=== PATIENT | female | born 1940 | race Caucasian/White ===

== ENCOUNTER 2025-06-15 19:07 | Emergency (ER) | payer MEDICARE, BC, SELFPAY ==
--- NOTE | 2025-06-15 19:16 | ED_ITS ---
HPI - Extremity Injury (Lower) General Chief Complaint: Extremity Injury, Lower Stated Complaint: R LEG INJURY Time Seen by Provider: 06/15/25 19:16 Source: patient and RN notes reviewed Mode of arrival: ambulatory Limitations: no limitations History of Present Illness HPI Narrative: 84-year-old female presents to the [facility] with complaints of redness, swelling, drainage from a skin tear to the right posterior lower leg. Robert is going HPI due to patient's history of dementia. states that she was walking downstairs, rub the back of her leg against edge of the stair and had a skin tear, he cleaned it, trimmed away some extra skin. Since then has had some thick drainage her as well as pain and swelling to the lower leg, ankle, foot. Has been reports that he has been cleaning it and keeping a dressing on it. Denies history of diabetes This occurred 4 days ago Onset (ago): day(s) (4) Treatments prior to arrival: bandage Related Data Allergies Allergy/AdvReac Type Severity Reaction Status Date / Time No Known Allergies Allergy Verified 06/15/25 19:24 Review of Systems 2 Review of Systems: All systems reviewed & are unremarkable except as noted in HPI and below Constitutional: Constitutional: Reports no additional constitutional complaints Musculoskeletal: Musculoskeletal: Reports as per HPI Integumentary/Breasts: Skin/Breast: Reports as per HPI and Reports wounds PMFSH Past Medical History Medical History Dementia Comments At the time of my signature, I reviewed and agree with the nursing past medical, surgical, social, and family history. There is no relevant family history pertinent to the patient complaint. Exam 2 Const: General: cooperative, comfortable, no acute distress, well developed, alert and tired appearing Orientation/consciousness: oriented to person L imitations: altered mental status (Dementia) HENMT: Head: normal to inspection Eyes: General: appearance normal, both eyes and all related structures A lignment and Position: alignment normal Neck: Neck: normal visual inspection, full ROM, no lymphadenopathy and no meningeal signs Chest: Chest palpation & inspection: normal inspection of the chest Resp: Effort & Inspection: normal respiratory effort and able to speak in complete sentences Cardio: Rate: regular rate Skin: Full body images: 1. 2 x 3 cm approximate purulent drainage, skin tear open wound. Be low that to the tip of the toe +2 edema, erythema, warm to touch Neuro: General: gait normal and moves all extremities Gait exam (Neuro): N ormal gait present Extrem: General: normal to inspection, full ROM, capillary refill normal and normal gait Other: +1 pulse right dorsal foot Movement of toes is noted Psych: Appearance: grossly normal and well kempt Affect: normal affect A ttitude: cooperative Course Course Level of Care: Express Care Visit Vital Signs Vital signs: Vital Signs Temperature 97.4 F L 06/15/25 19:22 Pulse Rate 89 06/15/25 19:22 Respiratory Rate 18 06/15/25 19:22 Blood Pressure 136/80 06/15/25 19:22 Pulse Oximetry 94 06/15/25 19:22 Temperature 97.4 F L 06/15/25 19:22 Pulse Rate 89 06/15/25 19:22 Respiratory Rate 18 06/15/25 19:22 Blood Pressure 136/80 06/15/25 19:22 Pulse Oximetry 94 06/15/25 19:22 Reviewed Transfer Transfered to: [facility]: Other (POV) Transfer rationale: Patient with a purulent drainage wound, significant +2 edema to the lower leg with circumferential cellulitis, sending for higher level of care Accepting physician: Spoke with Dr Gema Rajput MDM - Extremity Injury (Lower) MDM Narrative Medical decision making narrative: Patient sitting in exam room. HPI receive from . Significant erythema, swelling to the right lower foot, open wound with purulent drainage sending for higher level care rule out circumferential cellulitis. Transfer instructions reviewed with patient and go directly to the ER. Also reinforced by RN. All questions have been answered, and the patient deny any further questions. Some parts of this dictation were generated by voice recognition software and may contain typographical and/or grammatical inaccuracies. Differential Diagnosis Differential diagnosis: Likely ankle sprain and strain and other (Cellulitis, wound) Critical Care Time Critical Care Time Critical Care Time: No Discharge Plan Discharge Clinical Impression: Open wound, Cellulitis of leg, right Patient Disposition: Acute Care Hospital Condition: Stable Patient Language: Gambian Follow-up/Referrals: Bir,Marquita [Other]
[2025-06-15 19:22] VITALS: BP 136/80; PULSE 89; RESP 18; TEMP 36.3; O2SAT 94
== END 2025-06-15 19:30 | disposition short-term general hospital (02) ==
PROVIDERS: Emergency Provider Nurse Practitioner
DX: S81.811A Laceration without foreign body, right lower leg, initial encounter (principal); L03.115 Cellulitis of right lower limb; W22.09XA Striking against other stationary object, initial encounter; F03.90 Unspecified dementia, unspecified severity, without behavioral disturbance, psychotic disturbance, mood disturbance, and anxiety
CPT/HCPCS: 99202; G0463

== ENCOUNTER 2025-06-15 19:51 | Emergency (ER) | payer MEDICARE, BC, SELFPAY ==
--- OUTSIDE RECORDS SUMMARY | 2025-06-15 19:53 | XMS_ITS | Clinical Summary ---
Author Organization [facility] Address [address] [place] [place] [address] Phone Care Team Providers Care Change Management Facilitator Name Role Phone Barbara Gomez MD Primary Care Provider [phone] Medications levoFLOXacin (LEVAQUIN) 750 mg tabletIndication s:Acute sinusitis TAKE ONE TABLET DAILY FOR 14 DAYS. 14 tablet 0 3 Active mometasone-formo terol (DULERA) 100-5 mcg/actuation inhaler INHALE 2 PUFFS, BY MOUTH, TWICE DAILY. RINSE MOUTH AFTER USE. 1 GM 6 3 Active albuterol HFA (PROAIR HFA) 90 mcg/actuation inhaler inhale 1 puff every 4 hours if needed for wheezing 1 GM 5 3 Active azelastine-fluti casone (DYMISTA) 137-50 mcg/spray spray,non-aeroso lIndications:Chr onic sinusitis INSTILL 1 SPRAY DAILY 1 GM 5 3 Active azelastine (ASTEPRO) 0.15 % (205.5 mcg) spray,non-aeroso lIndications:Chr onic sinusitis 1-2 sprays each nostril 6 3 Active fluticasone (FLONASE) 50 mcg/actuation nasal sprayIndications :Chronic sinusitis instill 1 spray into each nostril twice a day 4 3 Active montelukast (SINGULAIR) 10 mg tabletIndication s:Chronic obstructive pulmonary disease (CMS/HCC),Chroni c sinusitis TAKE 1 TABLET BY MOUTH AT BEDTIME 30 tablet 9 3 Active Active Problems Problem Noted Date Diagnosed Date Shortness of breath 09/01/2013 Chronic obstructive pulmonary disease 01/18/2013 Chronic sinusitis 12/28/2012 Cough 12/28/2012 Abnormal chest x-ray with multiple lung nodules 12/28/2012 Resolved Problems Problem Noted Date Diagnosed Date Resolved Date Acute sinusitis 02/16/2013 11/26/2019 Family History Medical History Relation Name Comments Colon cancer FamHx Colon Cancer Relation Name Status Comments FamHx Social History Tobacco Use Types Packs/Day Years Used Date Smoking Tobacco: Former Comments Unknown Sex and Gender Information Value Date Recorded Sex Assigned at Not on file Legal Sex Female 10:22 PM PST Gender Identity Not on file Sexual Orientation Not on file Plan of Treatment Health Maintenance Due Date Last Done Comments DXA Scan (Bone Density Measurement) 1942 Tuberculosis Screening 1942 Hepatitis B Screening 1958 Adult Tdap/Td Vaccines (1 - Tdap) 1961 Pneumococcal 50+ (1 of 1 - PCV) 1992 Shingrix (Zoster) Vaccine (1 of 2) 1992 RSV (1 - 1-dose 75+ series) 2017 COVID-19 Vaccine (1 - season) 2025 Influenza 65+ (#1) 2025 Care Teams Change Management Facilitator Relationship Specialty Start Date End Date Barbara Gomez MD [address] [place] [address] PCP - General 10/29/16
--- OUTSIDE RECORDS SUMMARY | 2025-06-15 19:53 | XMS_ITS | Encounter Summary ---
Author Organization [facility] Address [address] [place] [address] Phone Care Team Providers Care Farmworker Rice Name Role Phone Barbara Gomez MD Primary Care Provider Encounter Details Date Type Department Care Team (Late st Contact Info) Description 03/14/2014 Orders Only [facility] Pulmonary Chest Medicine [address] [place] [phone] Pinky Andrew MD, MPH [address] [place] [address] Acute sinusitis; Chronic sinusitis Social History Tobacco Use Types Packs/Day Years Used Date Smoking Tobacco: Former Comments Unknown Sex and Gender Information Value Date Recorded Sex Assigned at Not on file Legal Sex Female 10:22 PM PST Gender Identity Not on file Sexual Orientation Not on file documented as of this encounter Plan of Treatment Not on file documented as of this encounter Visit Diagnoses Diagnosis Acute sinusitis Acute sinusitis, unspecified Chronic sinusitis Unspecified sinusitis (chronic) documented in this encounter Care Teams Farmworker Rice Relationship Specialty Start Date End Date Barbara Gomez MD [address] [place], [place] [phone] PCP - General 10/29/16 documented as of this encounter
--- OUTSIDE RECORDS SUMMARY | 2025-06-15 19:53 | XMS_ITS | Encounter Summary ---
Author Organization [email or web address] Address [address] [place] [address] Care Team Providers Care Teletype Operator Name Role Phone Marquita Pollock MD Primary Care Provider [phone] Encounter Details Date Type Department Care Team (Latest Contact Info) Description 06/10/2021 [facility] [address] [address] [place] [address] [place] [address] [facility] [employer] [facility] [address] [place] [address] Senile osteoporosis (Primary Dx) Social History Tobacco Use Types Packs/Day Years Used Date Smoking Tobacco: Former Smokeless Tobacco: Never Alcohol Use Standard Drinks/Week Comments No 0 (1 standard drink = 0.6 oz pur e alcohol) Comments No Sex and Gender Information Value Date Recorded Sex Assigned at Not on file Legal Sex Female 1:38 PM PDT Gender Identity Not on file Sexual Orientation Not on file documented as of this encounter Plan of Treatment Upcoming Encounters Date Type Department Care Team (Late st Contact Info) Description 06/25/2025 9:00 AM PDT Procedure visit [facility] [address] [facility] [address] [place] [address] [place] [address] [facility] [employer] [facility] [address] [place], [place] [phone] 09/27/2025 9:00 AM PST Clinical Support [facility] [address] [employer] [facility] [address] [place] [phone] documented as of this encounter Results * BI Dexa Bone Density (07/24/2021 1:42 PM PDT) Anatomical Region Laterality Modality N/A Digital Radiogra phy Narrative 07/24/2021 1:47 PM PDT This study has been reviewed and the results sent to the ordering provider. Please be advised the study result will be available for viewing within 48 to 72 hours under the Media Tab. For immediate viewing please use Chart Review and launch the Image Link. us Marquita Pollock MD IMG DXA PROCEDURES Final Result documented in this encounter Visit Diagnoses Diagnosis Senile osteoporosis- Primary Senile osteoporosis documented in this encounter Additional Health Concerns Infection Onset Date Last Indicated Resolved Time R/O Coronavirus 12/25/2022 12/25/2022 12/25/2022 4 :26 AM PDT R/O Coronavirus 09/12/2023 09/12/2023 09/12/2023 2 :54 PM PST R/O Coronavirus 09/12/2023 09/12/2023 09/12/2023 4 :49 PM PST COVID-19 09/12/2023 09/12/2023 10/12/2023 10:4 8 PM PST Assessment Noted Time A fall risk assessment has been complete d for the patient 01/07/2021 8:07 AM PDT documented as of this encounter Care Teams Teletype Operator Relationship Specialty [place] [address] [facility] [address] [place] [address] PCP - General Family Medicine 12/19/19 documented as of this encounter
--- OUTSIDE RECORDS SUMMARY | 2025-06-15 19:53 | XMS_ITS | Encounter Summary ---
Author Organization [facility] Address [address] [place] [address] Care Team Providers Care Business Line Controller Name Role Phone Marquita Pollock MD Primary Care Provider [phone] Encounter Details Date Type Department Care Team (Late Contact Info) Description 12/18/[address] [facility] [address] [address] [place] [address] [place] [address] [facility] [address] [place] [address] Left breast lump (Primary Dx); Screening mammogram, encounter for; Breast tenderness Social History Tobacco Use Types Packs/Day Years [...] Description 06/25/2025 9:00 AM PDT Procedure visit [facility] [address] [facility] [address] [place] [phone] [place] [address] [facility] [address] [place], [place] [phone] 09/27/2025 9:00 AM PST Clinical Support [facility] [address] [facility] [address] [facility] [place] [phone] documented as of this encounter Results * BI Diagnostic Mammogram Left W/CAD (12/20/2019 10:50 AM PDT) Anatomical Region Laterality Modality Breast Left Mammography 12/20/2019 Impressions 12/20/2019 10:50 AM PDT BI-RADS Category 2 (Benign Finding(s)) Free silicone in the left breast 9:00 axis, correlating to the palpable concern and indicating extracapsular rupture. Surgical consultation and clinical follow-up are recommended regarding the clinical complaint. MRI can be considered for further evaluation. Results discussed with the patient. Breast Density: Heterogeneously Dense (DENSE BREASTS) The results and recommendations were discussed with the patient. Patient was entered into a reminder system for annual screening mammogram or follow up mammogram. Electronically Signed by: LESLI WELCH M.D. Narrative 12/20/2019 10:50 AM PDT PROCEDURE: Left Breast Digital Diagnostic Mammogram with CAD, Left Breast Limited Ultrasound HISTORY: Patient is 79 years old and is seen for palpable abnormality or thickening noted by patient in the left breast. The patient has a history of right needle biopsy in 1994, bilateral augmentation in 1993 and bilateral augmentation in 1973. The patient has a history of bladder cancer at age 60. The patient has no family history of breast cancer. TECHNIQUE: The following mammographic views were obtained: left 2D craniocaudal, 2D craniocaudal spot compression, 2D craniocaudal implant displaced, 2D mediolateral oblique, 2D mediolateral oblique implant displaced and lateromedial spot compression. FILMS COMPARED: The present examination has been compared to prior imaging studies performed at [facility] on 08/19/2015, 08/20/2016, 09/21/2018 and 09/26/2019. MAMMOGRAM FINDINGS: Computer-aided detection was utilized by the radiologist in the interpretation of this examination. The breast is heterogeneously dense, which may obscure small masses. There is pre-pectoral silicone gel implants. There is an asymmetry in the left breast at 9 o'clock. This finding correlates with the palpable mass. No suspicious masses, suspicious calcifications, suspicious asymmetries or suspicious architectural distortions are seen. ULTRASOUND FINDINGS: Directed ultrasound was performed in the area of clinical concern. There is free silicone in the area of palpable concern 9:00 axis, 9 cm from the nipple, correlating to the palpable concern. No adenopathy. Procedure Note Lesli Welch MD - 12/21/2019 PROCEDURE: Left Breast Digital Diagnostic Mammogram with CAD, Left Breast LimitedUltrasound HISTORY: Patient is 79 years old and is seen for palpable abnormality or thickeningnoted by patient in the left breast. The patient has a history of right needlebiopsy in 1994, bilateral augmentation in 1993 and bilateral augmentation [id number]. The patient has a history of bladder cancer at age 60. The patient has nofamily history of breast cancer. TECHNIQUE: The following mammographic views were obtained: left 2D craniocaudal, 2D craniocaudal spot compression, 2D craniocaudal implant displaced, 2D mediolateral oblique, 2D mediolateral oblique implant displaced andlateromedial spot compression. FILMS COMPARED: The present examination has been compared to [facility] 08/19/2015,08/20/2016, 09/21/2018 and 09/26/2019. MAMMOGRAM FINDINGS: Computer-aided detection was utilized by the radiologist in theinterpretation of this examination. The breast is heterogeneously dense, which mayobscure small masses. There is pre-pectoral silicone gel implants. There is an asymmetry in theleft breast at 9 o'clock. This finding correlates with the palpable mass. No suspicious masses, suspicious calcifications, suspicious asymmetriesor suspicious architectural distortions are seen. ULTRASOUND FINDINGS: Directed ultrasound was performed in the area of clinical concern. There is free silicone in the area of palpable concern 9:00 axis, 9 cmfrom the nipple, correlating to the palpable concern. No adenopathy. IMPRESSION: BI-RADS Category 2 (Benign Finding(s)) Free silicone in the left breast 9:00 axis, correlating to the palpableconcern and indicating extracapsular rupture. Surgical consultation and clinical follow-up are recommended regardingthe clinical complaint. MRI can be considered for further evaluation.Results discussed with the patient. Breast Density: Heterogeneously Dense (DENSE BREASTS) The results and recommendations were discussed with the patient. Patientwas entered into a reminder system for annual screening mammogram or followup mammogram. Electronically Signed by: LESLI WELCH M.D. Marquita Pollock MD IMG BI PROCEDURES Final Result documented in this encounter Visit Diagnoses Diagnosis Left breast lump- Primary Screening mammogram, encounter for Breast tenderness Mastodynia Screening mammogram, encounter for Left breast lump Breast tenderness Mastodynia documented in this encounter Additional Health Concerns Infection Onset Date Last Indicated Resolved Time R/O Coronavirus 12/25/2022 12/25/2022 12/25/2022 4 :26 AM PDT R/O Coronavirus 09/12/2023 09/12/2023 09/12/2023 2 :54 PM PST R/O Coronavirus 09/12/2023 09/12/2023 09/12/2023 4 :49 PM PST COVID-19 09/12/2023 09/12/2023 10/12/2023 10:4 8 PM PST Assessment Noted Time A fall risk assessment has been complete d for the patient 11/20/2019 2:01 PM PST documented as of this encounter Care Teams Business Line Controller Relationship Specialty Start [place] [address] [address] PCP - General Family Medicine 12/19/19 documented as of this encounter
--- OUTSIDE RECORDS SUMMARY | 2025-06-15 19:53 | XMS_ITS | Encounter Summary ---
Author Organization [facility] Address [address] [place] [address] Care Team Providers Care Family Protection Specialist Name Role Phone Marquita Pollock MD Primary Care Provider [phone] Encounter Details Date Type Department Care Team (Late st Contact Info) Description 05/18/2024 [facility] [address] [place] [address] [place] [address] [facility] [address] [place] [address] DDD (degenerative disc disease), lumbar (Primary Dx) Social History Tobacco Use Types [...] Description 06/25/2025 9:00 AM PDT Procedure visit [facility] [address] [facility] [address] [place] [phone] [place] [address] [facility] [address] [place], [place] [phone] 09/27/2025 9:00 AM PST Clinical Support [facility] [address] [facility] [address] [place] [phone] documented as of this encounter Results * XR Spine Lumbar 2 Or 3 Views (05/19/2024 3:25 PM PDT) Anatomical Region Laterality Modality Spine, L-spine Computed Radiogr aphy 05/19/2024 3:37 PM PDT Impressions 05/19/2024 3:39 PM PDT Marked multilevel lumbar spondylosis. This report was generated using speech recognition software. Signed by: Raúl Melissa MD Narrative 05/19/2024 3:39 PM PDT LUMBAR SPINE HISTORY: DDD (degenerative disc disease), lumbar COMPARISON: None. FINDINGS: Lumbar vertebral body heights maintained. Mild levocurvature of the lumbar spine. Marked multilevel hypertrophic degenerative changes associated multilevel disc height loss. Vascular calcification. Procedure Note Raúl Melissa MD - 05/19/2024 LUMBAR SPINE HISTORY: DDD (degenerative disc disease), lumbar COMPARISON: None. FINDINGS: Lumbar vertebral body heights maintained. Mild levocurvature of thelumbar spine. Marked multilevel hypertrophic degenerative changes associated multileveldisc height loss. Vascular calcification. IMPRESSION: Marked multilevel lumbar spondylosis. This report was generated using speech recognition software. Signed by: Raúl Melissa MD Marquita Pollock MD IMG XR PROCEDURES Final Result documented in this encounter Visit Diagnoses Diagnosis DDD (degenerative disc disease), lumbar- Primary Degeneration of lumbar or lumbosacral intervertebral disc DDD (degenerative disc disease), lumbar Degeneration of lumbar or lumbosacral intervertebral disc documented in this encounter Additional Health Concerns Assessment Noted Time A fall risk assessment has been complete d for the patient 04/18/2024 7:52 AM PDT documented as of this encounter Care Teams Family Protection Specialist Relationship Specialty Start [place] [address] [facility] [address] [place] [address] PCP - General Family Medicine 12/19/19 documented as of this encounter
--- OUTSIDE RECORDS SUMMARY | 2025-06-15 19:53 | XMS_ITS | Encounter Summary ---
Author Organization [facility] Address [address] [place] [address] Care Team Providers Care Pediatrics Teacher Name Role Phone Marquita Pollock MD Primary Care Provider [phone] Encounter Details Date Type Department Care Team (Late Contact Info) Description 08/03/2018 Community Orders [facility] [address] [address] [place] [address] [place] [address] [address] Left shoulder pain, unspecified chronicity (Primary Dx) Social History Tobacco Use Types [...] Description 06/25/2025 9:00 AM PDT Procedure visit [facility] [address] [facility] [address] [place] [phone] [place] [address] [facility] [address] [place] [address] 09/27/2025 9:00 AM PST Clinical Support [facility] [address] [facility] [address] [place] [phone] documented as of this encounter Results * XR Shoulder 2+ Views Left (08/05/2018 12:50 PM PST) Anatomical Region Laterality Modality Upper Extremities, Shoulder Left Comp uted Radiography 08/05/2018 4:12 PM PST Impressions 08/05/2018 4:12 PM PST Normal left shoulder. This report was generated using speech recognition software. Signed by: Aki Kirk MD Narrative 08/05/2018 4:12 PM PST LEFT SHOULDER HISTORY: Left shoulder pain, unspecified chronicity COMPARISON: None. FINDINGS: The glenohumeral alignment is preserved. There is no fracture or dislocation. No abnormal soft tissue calcifications are seen. Procedure Note Aki Kirk MD - 08/05/2018 LEFT SHOULDER HISTORY: Left shoulder pain, unspecified chronicity COMPARISON: None. FINDINGS: The glenohumeral alignment is preserved. There is no fracture ordislocation. No abnormal soft tissue calcifications are seen. IMPRESSION: Normal left shoulder. This report was generated using speech recognition software. Signed by: Aki Kirk MD Rosas Meier DO IM XR PROCEDURES Final Result documented in this encounter Visit Diagnoses Diagnosis Left shoulder pain, unspecified chronicity- Primary Left shoulder pain, unspecified chronicity documented in this encounter Additional Health Concerns Infection Onset Date Last Indicated Resolved Time R/O Coronavirus 12/25/2022 12/25/2022 12/25/2022 4 :26 AM PDT R/O Coronavirus 09/12/2023 09/12/2023 09/12/2023 2 :54 PM PST R/O Coronavirus 09/12/2023 09/12/2023 09/12/2023 4 :49 PM PST COVID-19 09/12/2023 09/12/2023 10/12/2023 10:4 8 PM PST Assessment Noted Time A fall risk assessment has been complete d for the patient 05/24/2018 2:40 PM PDT documented as of this encounter Care Teams Pediatrics Teacher Relationship Specialty Start [place] [address] [facility] [address] [place] [address] PCP - General Family Medicine 12/19/19 documented as of this encounter
--- OUTSIDE RECORDS SUMMARY | 2025-06-15 19:53 | XMS_ITS | Encounter Summary ---
Author Organization [facility] Address [address] [place] [address] Care Team Providers Care Shaker Repairer Name Role Phone Marquita Pollock MD Primary Care Provider [phone] Reason for Referral * MRI/CAT/PET Scan (Routine) - Closed Specialty Diagnoses / Procedures Referred By Contac t Referred To Contact Radiology Diagnoses Rupture of implant of left breast, sequela Procedures MRI Breast Bilateral W Wo Contrast MRI Breast Left [place] [address] [facility] [address] [place] [address] Phone: tel: fax: [facility] [address] [place] [address] Phone: tel: fax: Referral ID Status Reason Start Date Expiration Date Visits Re quested Visits Authorized [id number] Closed 12/21/2019 12/20/2020 1 1 Encounter Details Date Type Department Care Team (Late st Contact Info) Description 12/21/[address] [facility] [address] [place] [address] [place] [address] [facility] [address] [place] [address] Rupture of implant of left breast, sequela (Primary Dx) Social History Tobacco Use Types [...] 06/25/2025 9:00 AM PDT Procedure visit [facility] [address] [place] [address] [place] [phone] [place] [address] [facility] [address] [place], [place] [id number] 09/27/2025 9:00 AM PST Clinical Support [facility] [address] [place] [address] [place] [address] documented as of this encounter Results * MRI Breast Bilateral W Wo Contrast (01/09/2020 12:35 PM PDT) Anatomical Region Laterality Modality Breast Bilateral Magnetic Resonan ce 01/09/2020 2:05 PM PDT Addenda Addendum by Ciaran Nuñez MD on 01/15/2020 9:07 AM PDT ADDENDUM REPORT I reviewed this case with Dr. Espinosa. There remains concern regarding the possibility of silicone granuloma versus an enhancing mass versus capsulitis. The patient shall be recalled for silicone sensitive sequence scanning. An addendum report will be issued. Signed by: Ciaran Nuñez MD Impressions 01/09/2020 2:22 PM PDT 1. Area of palpable concern by ultrasound correlates with focal bulging and enhancement of the capsule posterior medially in the left breast suggesting capsulitis. 2. There is no evidence of intracapsular or extra capsular rupture. 3. There is no evidence of malignancy in the right or left breast. RECOMMENDATION: I recommend clinical follow-up for area of palpable concern. I recommend follow-up MRI in 6 months. BI-RADS Category 3: Probably benign; six-month follow-up is recommended. This report was generated using speech recognition software. Signed by: Ciaran Nuñez MD Narrative 01/09/2020 2:22 PM PDT 1. BILATERAL BREAST MRI WITH AND WITHOUT CONTRAST 2. ADDITIONAL 3D POST-PROCESSING USING [employer] SOFTWARE WITH ENHANCEMENT KINETICS ASSESSMENT AND PARAMETRIC MAPPING HISTORY: The patient presents with an area of palpable thickening posterior and medial in the left breast. Bilateral breast implants 1974 replaced in 1993. History of benign biopsy right breast 1994. No family history of breast cancer. COMPARISON: Mammogram: 09/26/2019 and prior Breast ultrasound: 12/20/2019 MRI breast: none Other: None. TECHNIQUE: The exam was performed on an advanced high-field MR imaging system with a dedicated double breast coil. Subsequently, pre-contrast subtracted dynamic imaging of both breasts was obtained followed by the administration of IV gadolinium and subsequent multiphase post dynamic sequences every 60 seconds for five minutes. Additionally, high-resolution MIP (maximum intensity projection) 3D reconstructed images were created from each of the source postcontrast axial data sets and were reviewed. Additional axial high anatomic resolution post-contrast imaging was performed. Because of the presence of breast prosthesis/prostheses, additional dedicated implant sequence imaging was performed to evaluate for implant integrity. In-line with clinical standard of practice and based on this patient's clinical presentation with respect for potential renal compromise, the patient's creatinine level was measured in this office prior to intravenous contrast administration. The patient's creatinine level is 0.8. No contrast reactions noted with the intravenous administration of 7.6 mL GADOBUTROL 7.5 MMOL/7.5 ML (1 MMOL/ML) INTRAVENOUS SOLUTION. Additionally, dedicated breast module software ([employer]) was utilized to allow contrast kinetic assessment with kinetic curve construction and analysis for all relevant lesions. Parametric mapping performed to assist with disease detection and characterization. Any clinically important tax representative rendered images transferred to the PACS. FINDINGS: Breast density: C: Heterogeneously dense : breast tissue is heterogeneously dense (50-75% fibroglandular tissue) Background parenchymal enhancement (BPE): Mild BPE (25%-50% glandular enhancement) Breast implants: Bilateral implants are prepectoral in location. There are bilateral saline implants which appear intact. No intracapsular or extracapsular rupture. No periimplant fluid collection. Located at the posterior medial aspect of the left breast implant there is focal thickening and bulging of the left implant capsule with associated enhancement exhibiting slow and progressive type I kinetics measuring 15 mm x 4 mm x 11 mm located 7.5 cm from the nipple. I suspect this correlates with area of palpable concern and ultrasound findings demonstrating focal bulging subcutaneous at the 9:00 position 9 cm from the nipple with intense posterior acoustic shadowing. This area is dark on T2 with no associated T2 bright signal changes. Subareolar enhancement anterior and medial on the right appears to be glandular. There is no other evidence of mass lesion or suspicious nonmass enhancement in the right or left breast. No abnormal intramammary or axillary lymph nodes. Screening examination of the thorax and upper abdomen reveals no significant abnormalities in the tissues visualized. Procedure Note Ciaran Nuñez MD - 01/09/2020 1. BILATERAL BREAST MRI WITH AND WITHOUT CONTRAST 2. ADDITIONAL 3D POST-PROCESSING USING [employer] SOFTWARE WITHENHANCEMENT KINETICS ASSESSMENT AND PARAMETRIC MAPPING HISTORY: The patient presents with an area of palpable thickening posterior andmedial in the left breast. Bilateral breast implants 1974 replaced [id number]. History of benign biopsy right breast 1994. No family history ofbreast cancer. COMPARISON: Mammogram: 09/26/2019 and prior Breast ultrasound: 12/20/2019 MRI breast: none Other: None. TECHNIQUE: The exam was performed on an advanced high-field MR imaging system with adedicated double breast coil. Subsequently, pre-contrast subtracteddynamic imaging of both breasts was obtained followed by theadministration of IV gadolinium and subsequent multiphase post dynamicsequences every 60 seconds for five minutes. Additionally, high-resolution MIP (maximum intensity projection) 3Dreconstructed images were created from each of the source postcontrastaxial data sets and were reviewed. Additional axial high anatomicresolution post-contrast imaging was performed. Because of the presence ofbreast prosthesis/prostheses, additional dedicated implant sequenceimaging was performed to evaluate for implant integrity. In-line with clinical standard of practice and based on this patient'sclinical presentation with respect for potential renal compromise, thepatient's creatinine level was measured in this office prior tointravenous contrast administration. The patient's creatinine level is0.8. No contrast reactions noted with the intravenous administration of 7.6 mL GADOBUTROL 7.5 MMOL/7.5 ML (1 MMOL/ML) INTRAVENOUS SOLUTION. Additionally, dedicated breast module software ([employer]) wasutilized to allow contrast kinetic assessment with kinetic curveconstruction and analysis for all relevant lesions. Parametric mappingperformed to assist with disease detection and characterization. Anyclinically important tax representative rendered images transferred to [facility]. FINDINGS: Breast density: C: Heterogeneously dense : breast tissue isheterogeneously dense (50-75% fibroglandular tissue) Background parenchymal enhancement (BPE): Mild BPE (25%-50% glandularenhancement) Breast implants: Bilateral implants are prepectoral in location. Thereare bilateral saline implants which appear intact. No intracapsular orextracapsular rupture. No periimplant fluid collection. Located at the posterior medial aspect of the left breast implant there isfocal thickening and bulging of the left implant capsule with associatedenhancement exhibiting slow and progressive type I kinetics measuring 15mm x 4 mm x 11 mm located 7.5 cm from the nipple. I suspect thiscorrelates with area of palpable concern and ultrasound findingsdemonstrating focal bulging subcutaneous at the 9:00 position 9 cm fromthe nipple with intense posterior acoustic shadowing. This area is darkon T2 with no associated T2 bright signal changes. Subareolar enhancement anterior and medial on the right appears to beglandular. There is no other evidence of mass lesion or suspicious nonmassenhancement in the right or left breast. No abnormal intramammary or axillary lymph nodes. Screening examination of the thorax and upper abdomen reveals nosignificant abnormalities in the tissues visualized. IMPRESSION: 1. Area of palpable concern by ultrasound correlates with focal bulgingand enhancement of the capsule posterior medially in the left breastsuggesting capsulitis. 2. There is no evidence of intracapsular or extra capsular rupture. 3. There is no evidence of malignancy in the right or left breast. RECOMMENDATION: I recommend clinical follow-up for area of palpableconcern. I recommend follow-up MRI in 6 months. BI-RADS Category 3: Probably benign; six-month follow-up is recommended. This report was generated using speech recognition software. Signed by: Ciaran Nuñez MD Marquita Pollock MD IMG MRI PROCEDURES Edited Result - Final documented in this encounter Visit Diagnoses Diagnosis Rupture of implant of left breast, sequela- Primary Rupture of implant of left breast, sequela documented in this encounter Additional Health Concerns [...] documented as of this encounter Care Teams Shaker Repairer Relationship Specialty Start [place] [id number] [address] PCP - General Family Medicine 12/19/19 documented as of this encounter
--- OUTSIDE RECORDS SUMMARY | 2025-06-15 19:54 | XMS_ITS | Referral Summary ---
Author Organization [facility] Address [address] [place] [address] Care Team Providers Care Sales Intern Name Role Phone Marquita Pollock MD Primary Care Provider [phone] Source Comments The information displayed in Care Everywhere may not contain all available information, such as information contained in [employer] systems. Please fax requests for additional information to [facility]'s Health Information Management Department at .[facility] Encounters Date Type Department Care Team Description 06/04/2025 Travel 06/04/2025 7:30 AM PDT Office Visit [facility] [address] [facility] [place] [address] [place] [address] Calixto Lopez MD Microhematuria (Primary Dx); Cystocele, midline; Urinary retention 05/26/2025 Refill D[facility] Clinic on [facility] [address] [address] [facility] [place] [address] Angela Cruz NP 05/04/2025 Travel 05/04/2025 9:30 AM PDT Office Visit [facility] [address] [place] [address] [address] [facility] and [place], [place] [phone] Ronnie Leung DPM Wound of right lower extremity, subsequent encounter (Primary Dx) 04/20/2025 Travel 04/20/2025 9:30 AM PDT Office Visit [facility] [address] [place] [address] [address] [facility] [place] [address] Ronnie Leung, DPM Wound of right lower extremity, subsequent encounter (Primary Dx) 04/06/2025 Telephone [facility] [address] [place] [address] [place] [facility] [place] [address] Eve Erwin LVN Supplies 04/06/2025 8:20 AM PDT Office Visit [facility] [address] [place] [address] [address] [facility] [place] [address] Ronnie Leung, DPM Wound of right lower extremity, subsequent encounter (Primary Dx) from Last 3 Months Allergies No known active allergies Medications fluticasone (FLONASE) 50 mcg/actuation nasal spray Administer 2 sprays into each nostril 2 (two) times a day Active memantine (NAMENDA) 10 mg tablet Take 10 mg by mouth daily 12/21/19 21 Active donepeziL (ARICEPT) 5 mg tablet Take 5 mg by mouth 06/10/20 21 Active difluprednate 0.05 % drops 08/18/20 22 Active nepafenac (ILEVRO) 0.3 % drops,suspensi on ophthalmic suspension Administer 1 drop into affected eye(s) once Active gabapentin (NEURONTIN) 300 mg capsule Take 300 mg by mouth daily 10/02/19 25 Active lovastatin (MEVACOR) 40 mg tablet Take 40 mg by mouth At bedtime Active doxycycline (VIBRA-TABS) 100 mg tablet Take 1 tablet (100 mg total) by mouth 2 (two) times a day for 10 days 20 tablet 02/21/20 25 025 Discontinued mupirocin (BACTROBAN) 2 % ointment Apply 1 Application topically daily Dispense 1 tube 22 g 3 04/20/20 25 025 doxycycline (VIBRA-TABS) 100 mg tablet TAKE 1 TABLET (100 MG TOTAL) BY MOUTH 2 (TWO) TIMES A DAY FOR 10 DAYS 20 tablet 05/30/20 25 025 Additional Information Patient not taking.Reported on 06/04/2025 Active Problems Problem Noted Date Diagnosed Date Microhematuria 06/04/2025 Urinary retention 01/30/2023 Dysuria 01/29/2023 Cystocele, midline 03/01/2019 Overview (05/24/2024): Pessary is in place, no discomfort or excessive discharge. Voiding well with good bladder control. No UTI symptoms today, and denies recurrent UTI. Urine dip: Leukocytes trace, negative nitrites and blood. Assessment & Plan (05/24/2024 11:46 AM PDT): On exam pessary is in place, intact, minimal vaginal discharge. Continue pessary cleaning every 3 months (scheduled for 07/19/2024). RTC 1 year. Hallux rigidus of right foot 12/30/2017 Upper respiratory infection 09/29/2016 Overview (05/12/2017): Probable viral with associated bronchospasm Asthmatic bronchitis 06/25/2016 Chronic sinusitis 06/25/2016 History of colon polyps 06/17/2016 Assessment & Plan (08/13/2021 3:05 PM PST): Patient scheduled for colonoscopy with Anesthesiology. Split dose bowel prep instructions given to patient in office. Risks and benefits of the procedure were discussed in detail informed consent will be obtained day of procedure. Colonoscopy with possible biopsy, removal of polyp(s) with possible coagulation/injection therapy of blood vessels or tissue, and control of bleeding if necessary. Sedation and pain relieving medications may be given. Risk of bleeding, perforation requiring emergency surgery, adverse reaction to anesthesia resulting in cardiopulmonary arrest were discussed. 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 Atelectasis 02/13/2014 Emphysema lung 02/13/2014 Chronic obstructive lung disease 02/06/2014 Dyspnea 02/06/2014 Palpitations 02/06/2014 Shortness of breath 09/01/2013 Chronic obstructive pulmonary disease 01/18/2013 Abnormal chest x-ray with multiple lung nodules 12/28/2012 Chronic sinusitis 12/28/2012 Cough 12/28/2012 Immunizations Immunization Administration Dates Next Due Covid-19 (Pfizer) 11/11/2020,10/20/2020 Influenza High Dose IM, Ages 65+ 019,06/20/2018,05/24/2018,2016,06/16/2016 Influenza Quadrivalent, High Dose IM, Age 65+ 05/27/2023,07/07/2022 Influenza, Unspecified 08/21/2013 Pneumococcal, 23-valent 07/06/2017 RSV,Bivalent,PreF A And B 05/27/2023 Tdap 02/11/2016 Social History Tobacco Use Types Packs/Day Years Used Date Smoking Tobacco: Former Smokeless Tobacco: Never Tobacco Cessation:Counseling Given: Not Answered Alcohol Use Standard Drinks/Week Comments Yes 7 (1 standard drink = 0.6 oz pur e alcohol) PHQ-2 Answer Date Recorded PHQ-2 Score 0 06/04/2025 Comments No Sex and Gender Information Value Date Recorded Sex Assigned at Not on file Legal Sex Female 1:38 PM PDT Gender Identity Not on file Sexual Orientation Not on file Last Filed Vital Signs Vital Sign Reading Time Taken Comments Blood Pressure 153/79 06/04/2025 7:32 AM PDT Pulse 59 06/04/2025 7:32 AM PDT Temperature 36 C (96.8 F) 06/04/2025 7:32 AM PDT Respiratory Rate 17 06/04/2025 7:32 AM PDT Oxygen Saturation 100% 06/04/2025 7:32 AM PDT Inhaled Oxygen Concentration - - Weight 47.6 kg (105 lb) 06/04/2025 7:32 AM PDT Height 154.9 cm (5' 1) 06/04/2025 7:32 AM PDT Body Mass Index 19.84 06/04/2025 7:32 AM PDT Plan of Treatment Upcoming Encounters Date Type Department Care Team (Late st Contact Info) Description 06/25/2025 9:00 AM PDT Procedure visit [facility] [address] [facility] [address] [place] [address] [place] [address] [place] [address] 09/27/2025 9:00 AM PST Clinical Support [facility] [address] [place] [address] Procedures Procedure Name Priority Date/Time Associated Diagnosis Comments POCT URINALYSIS DIPSTICK Routine 06/04/2025 7:45 AM PDT Urinary retention Microhematuria HM COLONOSCOPY Routine 10/21/2021 from Last 3 Months or Most Recently Relevant to Health Maintenance Results * (ABNORMAL) POCT Urinalysis Dipstick (06/04/2025 7:45 AM PDT) POC Color, Urine Yellow Yellow 06/04/20 7:48 AM [facility] POC Appearance Urine Cloudy Clear 06/04/2025 7:48 AM [facility] POC Glucose Urine Negative Negative mg/dL 06/04/2025 7:48 AM PDT [facility] POC Ketones Urine Negative Negative mg/dL 06/04/2025 7:48 AM [facility] POC Specific [place] Urine 1.025 1.005 - 1.030 06/04/2025 7:48 AM [facility] POC Blood, Urine Large(A) Negative 06/04/20 7:48 AM PDT [facility] POC PH Urine 5.5 5.0 - 8.0 06/04/2025 7:48 AM [facility] POC Protein, Urine 30(A) Negative mg/dL 06/04/2025 7:48 AM [facility] POC Urobilinogen Urine 0.2 0.2 - 0.9 E.U./dL 06/04/2025 7:48 AM PDT [facility] POC Leukocytes Urine Large(A) Negative 06/04/2025 7:48 AM PDT [facility] POC Bilirubin Urine Negative Negative 06/04/2025 7:48 AM PDT [facility] POC Nitrite, Urine Negative Negative 06/04/2025 7:48 AM PDT [facility] Urine Urine specimen obtained by clean catch procedure / Unknown 06/04/2025 7:45 AM PDT 06/04/2025 7:48 AM PDT us Calixto Lopez MD POINT OF CARE TEST ORDERABL ES Final Result [facility] [address] [place] [address] * Colonoscopy (10/21/2021) Colonoscopy Results in Chart us Mickey Ba MD HEALTH MAINTENANCE Final Result from Last 3 Months or Most Recently Relevant to Health Maintenance Insurance MEDICARE PART A & B [facility] PPO MEDICARE PART A & B [employer] PPO MEDICARE PART A & B [employer] PPO Care Teams Sales Intern Relationship Specialty Start [place] [address] [address] PCP - General Family Medicine 12/19/19
--- OUTSIDE RECORDS SUMMARY | 2025-06-15 19:54 | XMS_ITS | Encounter Summary ---
Author Organization [facility] Address [address] [phone] Care Team Providers Care Beater Worker Helper Name Role Phone Marquita Pollock MD Primary Care Provider [phone] Reason for Referral * MRI/CAT/PET Scan (Routine) - Closed Specialty Diagnoses / Procedures Referred By Contac t Referred To Contact Radiology Diagnoses Mild dementia, unspecified dementia type, unspecified whether behavioral, psychotic, or mood disturbance or anxiety (CMS/HCC) Procedures [place] [address] [facility] [address] [place] [address] Phone: tel: fax: N[facility] [address] [facility] [place] [address] Phone: tel: fax: Referral ID Status Reason Start Date Expiration Date Visits Re quested Visits Authorized [id number] Closed 12/28/2022 12/28/2023 1 1 Encounter Details Date Type Department Care Team (Late st Contact Info) Description 12/28/2022 Community [email or web address] [address] [id number] [place] [address] [facility] [address] [place] [address] Mild dementia, unspecified dementia type, unspecified whether behavioral, psychotic, or mood disturbance or anxiety (CMS/HCC) (Primary Dx) Social History Tobacco Use Types [...] on file Sexual Orientation Not on file COVID-19 Exposure Response Date Recorded In the last 10 days, have yo u been in contact with someone who was confirmed or suspected to have Coronavirus/COVID-19? No / Unsure 12/25/2022 7:35 AM PDT documented as of this encounter Plan of Treatment Upcoming Encounters Date Type Department Care Team (Late st Contact Info) Description 06/25/2025 9:00 AM PDT Procedure visit [facility] [address] [place] [address] [place] [address] [address] [place], [place] [phone] 09/27/2025 9:00 AM PST Clinical Support [facility] [address] [place] [address] Scheduled Orders Name Type Priority Associated Diagnoses Orde r Schedule MRI Brain Wo Contrast Imaging Routine Mild Dementia, Unspecified Dementia Type, Unspecified Whether Behavioral, Psychotic, Or Mood Disturbance Or Anxiety (Cms/Hcc) Expected: 12/28/2022, Expires: 12/29/2023 documented as of this encounter Visit Diagnoses Diagnosis Mild dementia, unspecified dementia type, unspecified whether behavioral, psychotic, or mood disturbance or anxiety (CMS/HCC)- Primary documented in this encounter Additional Health Concerns Infection Onset Date Last Indicated Resolved Time R/O Coronavirus 09/12/2023 09/12/2023 09/12/2023 2 :54 PM PST R/O Coronavirus 09/12/2023 09/12/2023 09/12/2023 4 :49 PM PST COVID-19 09/12/2023 09/12/2023 10/12/2023 10:4 8 PM PST Assessment Noted Time A fall risk assessment has been complete d for the patient 12/25/2022 7:34 AM PDT documented as of this encounter Care Teams Beater Worker Helper Relationship Specialty Start [place] [id number] [address] PCP - General Family Medicine 12/19/19 documented as of this encounter
--- OUTSIDE RECORDS SUMMARY | 2025-06-15 19:54 | XMS_ITS | Clinical Summary ---
Author Organization [facility] Address [address] [place] [address] Care Team Providers Care Tool And Die Maker Level Five Name Role Phone Marquita Pollock MD Primary Care Provider [phone] Source Comments The information displayed in Care Everywhere may not contain all available information, such as information contained in [employer]og[employer] systems. Please fax requests for additional information to [facility]'s Health Information Management Department at .[facility] Allergies No known active allergies Medications fluticasone [...] daily Dispense 1 tube 22 g 3 08/10/09 24 025 doxycycline (VIBRA-TABS) 100 mg tablet TAKE 1 TABLET (100 MG TOTAL) BY MOUTH 2 (TWO) TIMES A DAY FOR 10 DAYS 20 tablet 05/30/20 025 Additional Information Patient not taking.Reported on [...] nodules 12/28/2012 Chronic sinusitis 12/28/2012 Cough 12/28/2012 Encounters Date Type Department Care Team Description 06/04/2025 7:30 AM PDT Office Visit [facility] [address] [facility] [address] [place] [address] Calixto Lopez MD Microhematuria (Primary Dx); Cystocele, midline; Urinary retention 06/04/2025 Travel 05/26/2025 Refill Derm Clinic on [facility] [address] [place] [address] Angela Cruz NP 05/04/2025 9:30 AM PDT Office Visit [facility] at the [facility] [address] [facility] [address] [facility] [address] [facility] [place] [address] Ronnie Leung, DPM Wound of right lower extremity, subsequent encounter (Primary Dx) 05/04/2025 Travel 04/20/2025 9:30 AM PDT Office Visit [facility] the [facility] [address] [facility] [address] [facility] [place] [address] Ronnie Leung, DPM Wound of right lower extremity, subsequent encounter (Primary Dx) 04/20/2025 Travel 04/06/2025 8:20 AM PDT Office Visit [facility] the [facility] [address] [facility] [address] [facility] [place] [address] Ronnie Leung, DPM Wound of right lower extremity, subsequent encounter (Primary Dx) 04/06/2025 Telephone [facility] [id number] [place] [address] [address] [facility] [place], [place] [phone] Eve Erwin LVN Supplies from Last 3 Months Immunizations Immunization Administration Dates Next Due Covid-19 (Pfizer) 11/11/2020,10/20/2020 Influenza High Dose IM, Ages 65+ 019,06/20/2018,05/24/2018,2016,06/16/2016 Influenza Quadrivalent, High Dose IM, Age 65+ 05/27/2023,07/07/2022 Influenza, Unspecified 08/21/2013 Pneumococcal, 23-valent 07/06/2017 RSV,Bivalent,PreF A And B 05/27/2023 Tdap 02/11/2016 Family History Medical History Relation Name Comments Cancer Father Cancer Mother Relation Name Status Comments Father Mother Social History Tobacco Use Types Packs/Day Years [...] Description 06/25/2025 9:00 AM PDT Procedure visit [facility] [address] [facility] [address] [place] [address] [place] [address] [facility] [address] [place] [address] 09/27/2025 9:00 AM PST Clinical Support [facility] [address] [facility] [address] [place] [address] Health Maintenance Due Date Last Done Comments Hepatitis B Screening (Once) 1960 Hepatitis C Screening (Once) 1960 Shingles Zoster Vaccine (1 of 2) 1992 Medicare Annual Wellness Visit 2008 Pneumococcal Vaccine 65+ yrs (2 of 2 - PCV) 07/06/2018 07/06/2017 COVID-19 Vaccine(s) (4 - season) 2025 02/11/2022, 11/11/2020, 10/20/2020 DTaP,Tdap,and Td Vaccines (2 - Td or Tdap) 02/10/2026 02/11/2016 Colonoscopy Discontinued 10/21/2021 Colorectal Cancer Screening (Colonoscopy recommended) Discontinued Influenza Vaccine Completed 06/03/2025, , 07/07/2022, Additional history exists Colon Cancer Screening FOBT Discontinued Colon Cancer Screening Sigmoidoscopy Discontinued Hepatitis A Vaccines Aged Out No long er eligible based on patient's age to complete this topic Hepatitis B Vaccines Aged Out No long er eligible based on patient's age to complete this topic IPV Vaccines Aged Out No longer eligi ble based on patient's age to complete this topic Meningococcal Vaccine Aged Out No constance bon[place] eligible based on patient's age to complete this topic Screening CT Colonography Discontinued Stool DNA Test (Cologuard) Discontinued Stool DNA Test (FIT) Discontinued Procedures Procedure Name Priority Date/Time Associated Diagnosis Comments POCT URINALYSIS DIPSTICK Routine 06/04/2025 7:45 AM PDT Urinary retention Microhematuria HM COLONOSCOPY Routine 10/21/2021 from Last 3 Months or Most Recently Relevant to Health Maintenance Results * (ABNORMAL) POCT Urinalysis Dipstick (06/04/2025 7:45 AM PDT) POC Color, Urine Yellow Yellow 06/04/20 7:48 AM PDT [facility] POC Appearance Urine Cloudy Clear 06/04/2025 7:48 AM PDT [facility] POC Glucose Urine Negative Negative mg/dL 06/04/2025 7:48 AM PDT [facility] POC Ketones Urine Negative Negative mg/dL 06/04/2025 7:48 AM PDT [facility] POC Specific [place] Urine 1.025 1.005 - 1.030 06/04/2025 7:48 AM PDT [facility] POC Blood, Urine Large(A) Negative 06/04/20 7:48 AM PDT [facility] POC PH Urine 5.5 5.0 - 8.0 06/04/2025 7:48 AM PDT [facility] POC Protein, Urine 30(A) Negative mg/dL 06/04/2025 7:48 AM PDT [facility] POC Urobilinogen Urine 0.2 0.2 - 0.9 E.U./dL 06/04/2025 7:48 AM PDT [facility] POC Leukocytes Urine Large(A) Negative 06/04/2025 7:48 AM PDT [facility] POC Bilirubin Urine Negative Negative 06/04/2025 7:48 AM PDT [facility] POC Nitrite, Urine Negative Negative 06/04/2025 7:48 AM PDT [facility] Urine Urine specimen obtained by clean catch procedure / Unknown 06/04/2025 7:45 AM PDT 06/04/2025 7:48 AM PDT us Calixto Lopez MD POINT OF CARE TEST ORDERABL ES Final Result [facility] [address] [place], [place] [phone] * Colonoscopy (10/21/2021) Colonoscopy Results in Chart Mickey Ba MD HEALTH MAINTENANCE Final Result from Last 3 Months or Most Recently Relevant to Health Maintenance Insurance MEDICARE PART A & B [employer] PPO MEDICARE PART A & [place] [employer] [place] [address] MEDICARE PART A & B [facility] PPO Care Teams Tool And Die Maker Level Five Relationship Specialty Start [place] [address] [address] PCP - General Family Medicine 12/19/19
[2025-06-15 20:10] VITALS: BP 148/94; PULSE 66; RESP 18; TEMP 36.7; O2SAT 99
[2025-06-15 23:21] VITALS: BP 128/67; PULSE 59; RESP 18; O2SAT 97
--- NOTE | 2025-06-16 00:42 | ED.GENADULT ---
HPI - General Adult General Chief complaint: Wound/Laceration Stated complaint: skin tear Time Seen by Provider: 06/16/25 00:29 History of Present Illness HPI narrative: Patient is an 84-year-old female who presents emergency department this evening from local correction due to evaluation of a wound to her right lower extremity if and concern for cellulitis. Patient states that a few days ago she was stepping down some wooden steps and scraped the back of her right urias. Patient did sustain a skin tear which started draining some yellow fluid and has some surrounding erythema. Patient initially presented to an urgent care for evaluation and she was sent here for further evaluation. Denies any additional symptoms or concerns. Related Data Allergies Allergy/AdvReac Type Severity Reaction Status Date / Time No Known Allergies Allergy Verified 06/15/25 23:21 Review of Systems Review of Systems: All systems are reviewed and are negative unless stated otherwise in the HPI. [facility] Past Medical History Medical History Dementia Exam Narrative: General: Alert, awake, afebrile, in no acute distress. HEENT: PERRL, no rhinorrhea, no post nasal drip, oropharynx clear. Neck: Trachea midline, no JVD, no lymphadenopathy. Cardiovascular: Regular rate and rhythm, no murmurs, rubs or gallops, no peripheral edema. Respiratory: Clear to auscultation bilaterally, no tachypnea, no wheezing, no rhonchi, no rubs, no respiratory distress. Abdomen: Soft, nontender, nondistended, no rebound, no guarding, no peritoneal signs. Musculoskeletal: Skin tear to the right urias measuring approximately 3 x 3 cm, mild surrounding erythema, no pustular drainage or concern for abscess. Skin: No rashes or petechia, no signs of infection. Psychiatric: Alert and oriented, normal behavior and judgment for situation. Neurological: Alert and oriented to person, place, and time. Follows all commands. No focal deficits, speech is clear and fluent. Course Vital Signs Vital signs: Vital Signs Temperature 98.1 F 06/15/25 20:10 Pulse Rate 66 06/15/25 20:10 Respiratory Rate 18 06/15/25 20:10 Blood Pressure 148/94 H 06/15/25 20:10 Pulse Oximetry 99 06/15/25 20:10 Oxygen Delivery Room Air 06/15/25 20:10 Temperature 98.1 F 06/15/25 20:10 Pulse Rate 59 L 06/15/25 23:21 Respiratory Rate 18 06/15/25 23:21 Blood Pressure 128/67 06/15/25 23:21 Pulse Oximetry 97 06/15/25 23:21 Oxygen Delivery Room Air 06/15/25 20:10 Medical Decision Making MDM Narrative Medical decision making narrative: The patient was evaluated by myself in the emergency department. History is obtained from patient who is an independent historian and physical exam was performed. External medical records were reviewed at this time. Differential diagnosis considerations include cellulitis, abscess, skin abrasion. Comorbidities impacting this visit include none. I have evaluated and discussed social determinants of health with the patient that could potentially impact subsequent diagnosis and treatment plans. On repeat assessment of the patient, reevaluation revealed that the patient is doing well and is in no acute distress. Patient symptoms have improved since she arrived to our emergency department. Repeat vital signs were all reviewed and noted to be stable. Differential diagnosis and treatment plan were discussed with the patient at bedside. Patient agrees with discussion and after shared medical decision making agrees with discharge. All questions were answered to the patient's satisfaction. Patient will follow up with her PCP in 3-5 days. Script for cephalexin was sent to patient's pharmacy to take as prescribed for her right leg cellulitis. Patient was provided with strict return precautions and instructed to return to the emergency department if any new or worsening symptoms develop. The patient was discharged in stable condition. Vital Signs Vital Signs: Vital Signs Temperature 98.1 F 06/15/25 20:10 Pulse Rate 66 06/15/25 20:10 Respiratory Rate 18 06/15/25 20:10 Blood Pressure 148/94 H 06/15/25 20:10 Pulse Oximetry 99 06/15/25 20:10 Oxygen Delivery Room Air 06/15/25 20:10 Temperature 98.1 F 06/15/25 20:10 Pulse Rate 59 L 06/15/25 23:21 Respiratory Rate 18 06/15/25 23:21 Blood Pressure 128/67 06/15/25 23:21 Pulse Oximetry 97 06/15/25 23:21 Oxygen Delivery Room Air 06/15/25 20:10 Discharge Plan Discharge Clinical Impression: Cellulitis of right leg Patient Disposition: Home Condition: Improved Instructions: Antibiotic Form, Cellulitis (ED) Additional Instructions: Please take the prescribed antibiotic as instructed for your right leg cellulitis. Return to the ED if any new or worsening symptoms develop. Follow-up with your family doctor within the next 3-5 days. Patient Language: Ghanaian Prescriptions: New cephalexin 500 mg capsule 500 mg PO Q12H 7 Days Qty: 14 0RF Follow-up/Referrals: PHYSICIAN,UTILITY HELICOPTER REPAIRER [Primary Care Provider, Internal Medicine] Allen Nolen MD [Physician, Family Practice] - 3 Days Time of Disposition: 00:44
== END 2025-06-16 01:02 ==
PROVIDERS: Emergency Provider Emergency Medicine
DX: L03.115 Cellulitis of right lower limb (principal); F03.90 Unspecified dementia, unspecified severity, without behavioral disturbance, psychotic disturbance, mood disturbance, and anxiety; W22.8XXA Striking against or struck by other objects, initial encounter
CPT/HCPCS: 99283